=== PATIENT | male | born 1975 | race African-American/Black ===

== ENCOUNTER 2019-11-25 11:18 | Emergency (ER) | payer BC ==
[2019-11-25] MEDS ORDERED: ASPIRIN 81 MG CHEWABLE TABLET PO ONE (11:21)
[2019-11-25] MEDS ORDERED: MORPHINE SULFATE 5 MG/ML VIAL IVP ONE ×2 (11:26→12:52)
--- NOTE | 2019-11-25 11:27 | Emergency Department Record ---
History of Present Illness - General Chief Complaint: Chest Pain Stated Complaint: CHEST PAIN/ARM PAIN Time Seen by Provider: 11/25/19 11:20 Source: Patient Mode of Arrival: Ambulatory Limitations: No limitations - History of Present Illness Initial Comments: 44 yo male presents with chest pain for the last 30 minutes. He states the onset was while at work. The pain is in the middle of the chest. He states it is an ache. He has bilateral arm discomfort as well. No radiation to the back. No jaw or neck pain. No cough or recent illness. He is a smoker. He feels a little short of breath. No leg pain or swelling. No past medical history. He does not have a doctor. No current medications. No other specific complaints. No pain with deep inspiration. MD Complaint: Chest pain -: Minutes(s) (30) Pain Location: Substernal Pain Radiation: RUE, LUE Severity: Moderate Quality: Aching Consistency: Constant Improves With: Nothing Worsens With: Nothing Context: Other Anginal Symptoms: Dyspnea Other Symptoms: Other Treatments Prior to Arrival: None Review of Systems Constitutional: Denies: Chills, Fever, Malaise, Weakness Eyes: Denies: Eye discharge ENT: Denies: Congestion, Throat pain Respiratory: Reports: Dyspnea. Denies: Cough Cardiovascular: Reports: Chest pain, Palpitations. Denies: Edema, Syncope Endocrine: Denies: Fatigue, Polydipsia, Polyuria Gastrointestinal: Denies: Abdominal pain, Diarrhea, Nausea, Vomiting Genitourinary: Denies: Dysuria, Frequency, Hematuria Musculoskeletal: Reports: Myalgia. Denies: Arthralgia, Back pain, Joint swelling Skin: Denies: Bruising, Change in color, Rash Neurological: Denies: Headache, Numbness, Tremors, Weakness Psychiatric: Denies: Anxiety Hematological/Lymphatic: Denies: Easy bleeding, Easy bruising Physical Exam - General General Appearance: Alert, Oriented x3, Cooperative, No acute distress Limitations: No limitations - Head Head exam: Atraumatic, Normal inspection - Eye Eye exam: Normal appearance, PERRL. negative: Conjunctival injection, Scleral icterus - ENT ENT exam: Normal exam, Mucous membranes moist Ear exam: Normal external inspection Nasal Exam: Normal inspection Mouth exam: Normal external inspection - Neck Neck exam: Normal inspection, Full ROM - Respiratory Respiratory exam: Normal lung sounds bilaterally. negative: Respiratory distress, Rhonchi, Stridor, Wheezes - Cardiovascular Cardiovascular Exam: Regular rate, Normal rhythm, Normal heart sounds - GI/Abdominal GI/Abdominal exam: Soft. negative: Tenderness - Rectal Rectal exam: Deferred - exam: Deferred - Extremities Extremities exam: Normal inspection. negative: Pedal edema, Tenderness - Back Back exam: Denies: CVA tenderness (R), CVA tenderness (L) - Neurological Neurological exam: Alert, Oriented X3 - Psychiatric Psychiatric exam: Normal affect, Normal mood. negative: Agitated, Anxious - Skin Skin exam: Dry, Intact, Normal color, Warm Course - Reevaluation(s) Reevaluation #1: The vitals were reviewed 11/25/19 11:27 EKG #1: 11:20 Rate: 80 Rhythm: sinus [place]: normal Intervals: normal ST segments: LVH, no acute ST changes Prior: none 11/25/19 11:38 The EKG was reviewed with Dr Whipple. No acute changes. The plan will be serial enzymes in the ED, ECHO and possible stress test in the afternoon if 2 sets are negative 11/25/19 11:39 EKG #2: 11:37 Rate: 84 Rhythm: sinus [place]: normal Intervals: normal ST segments: LVH, No acute ST changes, no changes from #1 Prior: #1 No dynamic changes from EKG #1 to #2 11/25/19 11:44 11/25/19 11:55 No acute changes on the CBC, CMP 11/25/19 11:57 Troponin is normal 11/25/19 13:54 The patient is sleeping comfortably The ECHO was completed The D-Dimer is negative 11/25/19 14:05 Waiting for ECHO report. Waking up the patient denies any chest pain 11/25/19 14:55 Repeat troponin is normal Stress test ordered 11/25/19 14:56 Normal CXR 11/25/19 15:10 The ECHO report was reviewed. Normal with normal EF 11/25/19 16:16 The Stress test was completed. The patient remained asymptomatic and tolerated well The preliminary report was it was negative for acute changes. Review this ER visit and the tests performed with your family doctor Call your doctor for the next available follow up appointment Return to the ER for a recheck immediately if worse, any new concerns or questions Medical Decision Making - Lab Data Result diagrams: 11/25/19 11:24 11/25/19 11:24 Disposition Disposition: Discharge Clinical Impression: Chest pain Disposition: Home, Self-Care Condition: (1) Good Instructions: Chest Pain (ED) Additional Instructions: Review this ER visit and the tests performed with your family doctor Call your doctor for the next available follow up appointment Return to the ER for a recheck immediately if worse, any new concerns or q uestions Forms: Patient Portal Access Time of Disposition: 16:17 Quality - Quality Measures Quality Measures: N/A - Blood Pressure Screening Does Patient Have Any of the Following: No Blood Pressure Classification: Hypertensive Reading Systolic Measurement: 166 Diastolic Measurement: 102 Screening for High Blood Pressure: < Pre-Hypertensive BP, F/U Documented > [G8950] Pre-Hypertensive Follow-up Interventions: Referral to alternative/primary care provider.
[2019-11-25 11:35] LABS: ABSOLUTE NEUTROPHIL COUNT 2.77; BASO % 0.4 % (0-6); EOS % 1.4 % (0-6); GRAN % 39.6 % (47-80); HEMATOCRIT 39.8 % (42.0-52.0); HEMOGLOBIN 14.5 gm/dl (14.0-18.0); LYMPH % 48.6 % (16-45); MEAN CELL VOLUME 87.3 fl (81-97); MEAN CORPUSCULAR HEMOGLOBIN 31.8 pg (27-33); MEAN CORPUSCULAR HGB CONC 36.4 g/dl (32-36); MEAN PLATELET VOLUME 9.9 fl (7.4-10.4); PLATELET COUNT 259 K/uL (130-400); RED BLOOD COUNT 4.56 M/uL (4.40-5.70); RED CELL DISTRIBUTION WIDTH 14.3 % (11.5-14.5)
[2019-11-25] MEDS ORDERED: NITROGLYCERIN 0.4MG SL TABLET #25 BTL SL PRN (11:46)
[2019-11-25 11:48] LABS: BLOOD UREA NITROGEN 15 mg/dL (6-20); CREATININE 0.9 mg/dL (0.7-1.2); EST GLOMERULAR FILTRATION RATE > 60 mL/min; TOTAL PROTEIN 6.7 g/dL (6.6-8.7)
[2019-11-25 11:50] LABS: GLUCOSE,RANDOM 135 mg/dL (74-109)
[2019-11-25 11:53] LABS: ALB/GLOB RATIO 1.5 (1.1-1.8); ALKALINE PHOSPHATASE 51 U/L (40-129); ALT/SGPT 24 U/L (<41); AST/SGOT 23 U/L (10.0-50.0); PARTIAL THROMBOPLASTIN TIME 22.2 SECONDS (24.5-39.1); PROTHROMBIN TIME (PATIENT) 10.2 SECONDS (9.5-12.1)
--- NOTE | 2019-11-25 14:30 | RADIOLOGY REPORT ---
EXAMINATION: Two View Chest Radiographs EXAM DATE: 11/25/2019 2:17 PM TECHNIQUE: Frontal and lateral views INDICATION: chest pain COMPARISON: None ENCOUNTER: Not applicable FINDINGS: The heart, mediastinum, and pulmonary vasculature are normal. No lung consolidation or pleural effu sions are present. No pneumothorax. Osseous structures unremarkable. IMPRESSION: No acute process. Dictated by: Hans Browning DO on 11/25/2019 2:29 PM. .
--- NOTE | 2019-12-03 10:25 | Stress Test Report ---
DATE OF TEST: 11/25/2019 INDICATION: Chest pain. Mr. Woods's resting vital signs show a blood pressure of 149/93 mmHg and the resting ECG shows a normal sinus rhythm at 72 b.p.m. Normal QRS axis and normal intervals. The patient was exercised on a motorized treadmill using standard Arvind protocol for a total of 7 minutes 21 seconds achieving 9 METS of workload. The patient achieved a maximum heart rate of 150 b.p.m. which was 85% of the maximum predicted heart rate for his age. The patient's peak blood pressure during the stress test was 154/85 mmHg. The patient did not complain of any abnormal symptoms during the stress test. The patient's ECG does not show any ST or T-wave changes suggestive of ischemia. No arrhythmia was seen either. IMPRESSION: 1. NORMAL ECG RESPONSE TO EXERCISE STRESS WHILE ACHIEVING 9 METS OF WORKLOAD. 2. AVERAGE EXERCISE CAPACITY FOR AGE. JOB NUMBER: [id number] MTDD
== END 2019-11-25 16:28 | disposition home or self-care (01) ==
LOC: ER 11:18
DX: R07.2 Precordial pain (principal); R06.02 Shortness of breath; M79.622 Pain in left upper arm; M79.621 Pain in right upper arm; F17.210 Nicotine dependence, cigarettes, uncomplicated
CPT/HCPCS: 71046; 80053; 84484; 85025; 85379; 85610; 85730; 93005; 93010; 93017; 93306; 93356; 96374; 96376; 99284